=== PATIENT | female | born 1985 | race Caucasian/White ===

== ENCOUNTER 2025-05-11 11:45 | Emergency (ER) | payer OTHER, SELFPAY ==
[2025-05-11 11:49] VITALS: BP 127/81; PULSE 78; RESP 20; TEMP 36.8; O2SAT 98
[2025-05-11 11:51] VITALS: BP 127/81; PULSE 78; RESP 20; TEMP 36.8; O2SAT 98
--- NOTE | 2025-05-11 12:30 | RT.EKG_ITS ---
APPROVED REPORT Exam: Resting ECG Reason for Exam: visual change Patient Location: E HR:77 bpm ECG Measurements Heart Rate 77 AXIS GA 164 P -20 QRSd 93 QRS 64 QT 368 T 2 QTc 416 Conclusion Sinus rhythm...normal P axis, V-rate 60- 99
--- NOTE | 2025-05-11 12:35 | W.ED.GENAD ---
Discharge Plan Disposition Patient Disposition: Home Condition: Good Discharge Details Clinical Impression: AF (amaurosis fugax), Headache, Alteration in vision Primary Care Provider: José Jacobson ED Provider: Summer Rubio Home Meds and New Rx's Prescriptions: No Action No Known Home Meds Discharge Instructions Additional Instructions: As we discussed, your labs and imaging are reassuring here today. However, I am concerned that this may have been associated with ocular strain and would like for you to help follow-up with both primary care provider as well as locomotive engineer. You may need referral to a neuro locomotive engineer as well based on any continued symptoms. Please try to adjust the lighting in the room where computer is to help reduce the strain on your eyes. He may need to take more frequent breaks from prolonged periods looking at the computer. Please encourage hydration. He may continue with Tylenol and ibuprofen as needed for discomfort, please take as directed on the packaging. If you develop any recurrence of your symptoms or worsening/new symptoms please seek care urgently once again. Have set up an appointment with [facility] for follow-up next May 20, please see information below regarding contact information and information on the appointment. Care management will reach out regarding primary care establishment follow-up. Stand Alone Forms: Portal Information Referrals: [facility] [Outside] - 05/20/25 11:20 am Discharge Data Discharge Date/Time-TO BE ENTERED AT DEPARTURE: 05/11/25 15:16 HPI General Date/Time Provider Initiated Documentation: 05/11/25 11:48. Limitations to Documentation: no limitations. Information obtained by: patient, family () and RN notes reviewed. History of Present Illness 39 year old F presents to the emergency department with the chief complaint of transient left eye lower visual loss, now resolved, Quality is described as aching (mild [place] at this time, left side of head), Patient started experiencing this hour(s) (lasted for about an hour, has been resolved for the hour leading up to assessment) and it has been now resolved. No relieving factors improve symptom(s), (stopped about 10 minutes after she stopped looking at computer) Other factors that worsen symptoms (came on when looking at the computer for a few hours for work, bright light on computer) . Patient did receive the following treatments prior to arrival, none Related Data Home Medications ?Medication ?Instructions ?Recorded ?Confirmed Unknown [No Known Home Meds] 05/11/25 05/11/25 Allergies Allergy/AdvReac Type Severity Reaction Status Date / Time Penicillins Allergy Intermediate Hives Verified 05/11/25 11:53 General Stated Complaint: EyeProblem WESLEY: 3 Review of Systems Constitutional Constitutional: Reports as per HPI, Denies chills, Denies fatigue, Denies fever(s), Reports headache(s) and Denies weakness Eyes Eyes: Reports as per HPI, Reports blurry vision (initally blurred vision), Reports change in vision (left eye had lower visual loss that was noted to last 10 minutes), Denies diplopia, Denies eye discharge, Denies floaters, Reports loss of vision, Denies requires corrective lenses, Reports photophobia and Denies spots in vision ENT Ears, Nose, Mouth, and Throat: Denies dizziness, Reports headache(s) and Denies disequilibrium Cardiovascular Cardiovascular: Reports as per HPI, Denies chest pain, Denies lightheadedness and Denies dyspnea Respiratory Respiratory: Denies cough and Denies dyspnea Gastrointestinal Gastrointestinal: Denies nausea and Denies vomiting Musculoskeletal Musculoskeletal: Denies numbness Integumentary/Breasts Skin/Breast: Reports as per HPI, Denies rash, Denies skin pain and Denies skin swelling Neurologic Neurologic: Denies abnormal movements, Denies confusion, Denies dizziness, Reports headache(s), Denies localized weakness, Reports loss of vision, Denies numbness, Denies sensory deficit, Denies disequilibrium and Denies weakness Psychiatric Psychiatric: Denies confusion Endocrine Endocrine: Denies fatigue Exam Const General: cooperative, healthy appearing, comfortable, no acute distress, well developed and well groomed Nutritional Appearance: average body habitus and well nourished Orientation: alert, awake and oriented x3 [facility] Head: normal to inspection, normocephalic and atraumatic Ears: hearing grossly normal bilaterally and external ears normal Face and sinus: normal facial exam and face symmetric Mouth: oral mucosae normal, lip normal and moist mucous membranes Eyes General: appearance normal, both eyes and all related structures Visual Murphy: normal visual murphy by confrontation Alignment and Position: alignment normal and position normal Periorbital: periorbital findings normal Eyelids: eyelids normal Conjunctivae: conjunctivae normal Cornea: corneas normal Pupils: PERRL, normal by confrontation and accommodation normal EOM: EOM intact bilaterally Resp Effort & Inspection: normal respiratory effort, able to speak in complete sentences and no respiratory distress Skin General skin exam: no rashes or lesions noted Neuro General: patient alert, patient awake and patient oriented x3 Cranial Nerves: CN's II-XI intact bilaterally Cognition: normal cognition Speech: speech normal Gait: normal gait Motor: muscle tone normal throughout and strength 5/5 throughout Course Vital Signs Vital signs: Vital Signs Temperature 36.8 C 05/11/25 11:49 Pulse 78 05/11/25 11:49 Respiratory Rate 20 05/11/25 11:49 Blood Pressure 127/81 05/11/25 11:49 Pulse Oximetry 98 05/11/25 11:49 Temperature 36.8 C 05/11/25 11:51 Pulse 78 05/11/25 11:51 Respiratory Rate 20 05/11/25 11:51 Blood Pressure 127/81 05/11/25 11:51 Blood Pressure Position Sitting 05/11/25 11:51 Pulse Oximetry 98 05/11/25 11:51 Medical Decision Making Patient is a pleasant 39 year old female, otherwise healthy, accompanied by , presenting after episode of transient visual loss. She states that she was working on a computer for a few hours prior to the onset of symptoms. States that she is new to working from home and notes that she has a bright window that backlights the computer from a window behind where hs eis set up. States that this create quite a glare. Reports that she noted some eye strain then felt that her vision was blurry during a meeting. She states taht after the meeting, she went to the bathroom and, noting persistent blurred vision and left sided [place], she tested her vision in an isolated pattern. She noted that they right eye was normal. She then noted that her left eye had a focal visual deficit. Patient and deny any other deficits at that time. She states that her symptoms stopped about 10 minutes after completion of her meeting. Has never had symptoms like this previously. Has history of CA[place] but none quite like this. Reports that currently she has a mild [place] but vision is back to normal. On exam, patient appears non-toxic. She is hemodynamically stable. She has normal visual acuity as well as murphy with Ansler grid assessment. Murphy intact grossly. Pupils are PERRLA. EOM intact. Fundascopic exam WNL. No neuro deficits at this time. Normal pulmonary and cardiac examiantion. Patient does not have any atherosclerotic risk factors or known coagulopathy. She has had a mirena IUD without any estrogen no increased risk for thrombotic event. She continues to have a headache and this was brought on after working continuously on the computer, I did consider optic migraine but she has never had a history of the same. She does report that she recently transition to working from home so has had increased computer time. This certainly could be the case. However, definitive evaluation for structural etiology would be appropriate at this point. As the patient has not had any continued symptoms, I have no indication at this time to suggest retinal detachment and do not feel that ultrasound will add much to the workup but rather feel that CTA would be more appropriate. Again, it is probably because of the patient continuing to have headache. No neurologic deficit at this time to suggest a larger CVA. She not having any difficulty eating or symptoms with chewing to suggest GCA, no temporal pain. No eye trauma. She does not wear contact lenses. No foreign body. This was monocular lower vision on the left side. Without any persistent symptoms no indication to suggest any more atypical such as MS. No palpitations or CP but with anatoliy ddx feel that ECG is appropriate. CTA reviewed by radiologist: IMPRESSION: 1. CTA brain: Normal CTA examination of the [place]. 2. Head CT: No acute abnormality. 3. CTA neck: No evidence of occlusion, significant stenosis or dissection. Discussed with patient. Labs are reassuring. Advised that at this time, particularly with the history and precipitating event, and resolution after she stopped using the computer, I do not see need for further evaluation of her transient visual disturbance. This is likely benign but she will need f/u with ophthalmology, primary care and potentially neurophthamology. Will defer that decision to PCP. She does not have PCP, is new to the area, I have asked that care management get patient in with new PCP in the next week. Called [facility] to get f/u appointment in timely fashion. , May 20 is the soonest they can get her in. We discussed strict return precautions. Discussed how to prevent recurrence and warning sign. All of her questions and concerns were addressed, she is in agreement with this plan. PFSH All Active Problems (Updated 05/11/25 @ 14:51 by VIRGIE Silvestre) Alteration in vision (Acute) Headache (Acute) AF (amaurosis fugax) (Acute) Social History Smoking risk assessment performed?: No PAWSS Have you Been Recently Intoxicated or Drunk Within the Last 30 days?: No Have you Ever Experienced Previous Episodes of Alcohol Withdrawal?: No Have you ever Experienced Withdrawal Seizures?: No Have you ever Experienced Delirium Tremens(DT)s?: No Have you ever undergone Alcohol Rehabilitation Treatment (i.e, inpt ot outpatient treatment programs)?: No Have you ever Experienced Blackouts?: No Have you ever Combined Alcohol with other Downers within the last 90 days?: No Have you ever Combined Alcohol with any other Substance of Abuse during the last 90 days?: No Positive Blood Alcohol level on Presentation? [PCS.BAL]: No Evidence of Increased Autonomic Activity (i.e. HR>120, tremor, sweating, agitation, nausea)?: No Result: 0
--- NOTE | 2025-05-11 12:40 | DI.CT_ITS ---
Exam(s) CT BRAIN NECK CTA EXAM: CT BRAIN NECK CTA CLINICAL HISTORY: left eye visual loss, lower field. TECHNIQUE: Imaging Protocol: Axial CT angiography was performed with multi- slice acquisition and multi-planar and MIP reconstructions. CONTRAST MATERIAL: Intravenous: Omnipaque 350 Contrast volume:70 ml COMPARISON: No exams were available for comparison FINDINGS: CT Head W/O and W contrast: Ventricles and Extra axial spaces: Normal in size and morphology for the patient's age. Hemorrhage: None. Cerebral parenchyma: No evidence of acute infarct or mass. Midline shift: None. Brainstem/Cerebellum: No acute findings.. Calvarium: Normal. Visualized Paranasal sinuses/Mastoids: Clear. Soft Tissues: Unremarkable. Enhancement: Normal. Venous sinuses are patent. CTA Brain W: Internal Carotid Arteries: Right: No aneurysm, occlusion or significant stenosis. Left: No aneurysm, occlusion or significant stenosis. Middle Cerebral Arteries: Right: No aneurysm, occlusion or significant stenosis. Left: No aneurysm, occlusion or significant stenosis. Anterior Cerebral Arteries: Right: No aneurysm, occlusion or significant stenosis. Left: No aneurysm, occlusion or significant stenosis. Posterior cerebral Arteries: Right: No aneurysm, occlusion or significant stenosis. Left: No aneurysm, occlusion or significant stenosis. Vertebral Arteries: Right: No aneurysm, occlusion or significant stenosis. Left: No aneurysm, occlusion or significant stenosis. Basilar Artery: No aneurysm, occlusion or significant stenosis. CTA Neck W: Visualized aorta: Unremarkable. Visualized pulmonary arteries: Unremarkable. Subclavian arteries: Unremarkable. Common Carotid: Right: No dissection, occlusion or significant stenosis. Left: No dissection, occlusion or significant stenosis. External Carotid: Right: No dissection, occlusion or significant stenosis. Left: No dissection, occlusion or significant stenosis. Internal Carotid: Right: No dissection, occlusion or significant stenosis. Left: No dissection, occlusion or significant stenosis. Vertebral Artery: Right: No dissection, occlusion or significant stenosis. Left: No dissection, occlusion or significant stenosis. Lung Apices: No acute findings. Bones: No acute abnormality. Soft Tissues: Normal. IMPRESSION: 1. CTA brain: Normal CTA examination of the [place]. 2. Head CT: No acute abnormality. 3. CTA neck: No evidence of occlusion, significant stenosis or dissection. RADIATION DOSE DELIVERED: 2,018.19mGy.cm Total DLP DATA REPOSITORY: All CT scans at this facility are submitted to the National Radiology Data Registry (NRDR) Dose Index Registry (DIR) with the [employer] (A[employer]). RADIATION OPTIMIZATION: All CT scans at this facility use at least one of these dose optimization techniques: automated exposure control; mA and/or kV adjustment per patient size (includes targeted exams where dose is matched to clinical indication); or iterative reconstruction.
[2025-05-11 13:06] LABS: Abs Immature Grans 0.02 10^3/uL (0.0-0.06); HCT 46.1 % (36.0-46.0); HGB 15.7 g/dL (11.2-15.7); Immature Grans % 0.3 %; MCH 30.7 pg (27.0-33.0); MCHC 34.1 % (32.0-36.0); MCV 90 fL (80-95); MPV 9.7 fL (8.0-11.0); Platelet Count 218 10^3/uL (130-400); RBC 5.12 10^6/uL (3.93-5.22); RDW 11.2 % (11.7-14.6); RDW-SD 37.0 fL; WBC 7.74 10^3/uL (4.4-10.8)
[2025-05-11 13:28] LABS: ALT 23 U/L (10-49); AST 22 U/L (<34); Albumin 5.1 g/dL (3.2-5.0); Alkaline Phosphatase 55 U/L (46-116); Anion Gap 11.3 mmol/L (3-11); BUN 9 mg/dL (9-23); Bilirubin, Total 1.0 mg/dL (0.2-1.2); CO2 24.7 mmol/L (20.0-31.0); Calcium 9.4 mg/dL (8.3-10.6); Chloride 106 mmol/L (98-107); Glucose 91 mg/dL (74-106); Magnesium 2.1 mg/dL (1.6-2.6); Potassium 3.7 mmol/L (3.5-5.1); Sodium 142 mmol/L (136-145); Total Protein 8.3 g/dL (5.7-8.2)
[2025-05-11] MEDS: Omnipaque 350 MG/ML 100 ML BTL IJ (13:36)
[2025-05-11] MEDS: Normal Saline Flush 10 ML SYR IVP (13:37)
[2025-05-11] MEDS: Normal Saline - Diluent 50 ML VIAL IJ (13:37)
[2025-05-11] MEDS: Acetaminophen 500 MG TAB 1000 MG PO (15:10)
[2025-05-11 15:15] VITALS: BP 110/63; PULSE 65; RESP 20; TEMP 36.8; O2SAT 99
== END 2025-05-11 15:16 | disposition home or self-care (01) ==
LOC: ER 14:59
PROVIDERS: Emergency Provider Physician Assistant; PCP Family Medicine
DX: G45.3 Amaurosis fugax (principal); R51.9 Headache, unspecified; H53.15 Visual distortions of shape and size
CPT/HCPCS: 99284; 99285; 36416; 82962; 70496; 70498; 80053; 93005; 83735; 85025; 93010; J3490